=== PATIENT | male | born 1975 | race Caucasian/White ===

== ENCOUNTER 2018-05-20 22:16 | Emergency (ER) | payer OTHER ==
[2018-05-20] MEDS ORDERED: Sodium Chloride 0.9% 1,000 ML IV ONE (22:38)
--- NOTE | 2018-05-20 22:45 | C.PDOC ---
"History Of Present Illness 42 year old male presents to the ER with a complaint of right flank pain intermittently for the past 2 days, associated with blood in the urine today. Patient states he feels like his testicles are hot but denies any pain. Patient also denies fever, chills, or any PMHx. Time Seen by Provider: 05/20/18 22:34 Chief Complaint (Nursing): Back Pain History Per: Patient History/Exam Limitations: no limitations Onset/Duration Of Symptoms: Days Current Symptoms Are (Timing): Still Present Quality Of Discomfort: Unable To Describe Associated Symptoms: Back Pain (Right flank), Other (Hematuria). denies: Fever , Chills Alleviating Factors: None Recent travel outside of the [place]: No Past Medical History Reviewed: Historical Data, Nursing Documentation, Vital Signs Vital Signs: Last Vital Signs Temp 98.3 F 05/20/18 22:26 Pulse 77 05/20/18 22:26 Resp 20 05/20/18 22:26 BP 111/75 05/20/18 22:26 Pulse Ox 98 05/21/18 00:17 - Medical History PMH: No Chronic Diseases Family History: States: Unknown Family Hx - Social History Hx Alcohol Use: No Hx Substance Use: No - Immunization History Hx Tetanus Toxoid Vaccination: No Hx Influenza Vaccination: No Hx Pneumococcal Vaccination: No Review Of Systems Constitutional: Negative for: Fever, Chills Respiratory: Negative for: Cough, Shortness of Breath Gastrointestinal: Negative for: Nausea, Vomiting Genitourinary: Positive for: Hematuria Musculoskeletal: Positive for: Back Pain (Right flank) Physical Exam - Physical Exam Appears: Non-toxic Skin: Warm, Dry Head: Normacephalic Oral Mucosa: Moist Chest: Symmetrical, No Tenderness Cardiovascular: Rhythm Regular Respiratory: No Rales, No Rhonchi, No Wheezing Gastrointestinal/Abdominal: Soft, No Tenderness Back: CVA Tenderness (Mild right) Neurological/Psych: Oriented x3 ED Course And Treatment - Laboratory Results Result Diagrams: 05/20/18 22:55 05/20/18 22:55 Lab Interpretation: Abnormal (WBC 17.1 with left shift, UA WBC 1415, RBC 473, 3 + leukocyte esterase) O2 Sat by Pulse Oximetry: 98 (Room air) Pulse Ox Interpretation: Normal - CT Scan/US CT abdomen and pelvis Other Rad Studies (CT/US): Read By Radiologist, Radiology Report Reviewed CT/US Interpretation: EXAM: CT Abdomen and Pelvis Without Intravenous Contrast. EXAM DATE/TIME: 05/20/2018 10:38 PM. CLINICAL HISTORY: 42 years old , male; Pain; Abdominal pain; Flank; Lower; Additional info: Abd pain. TECHNIQUE: Axial computed tomography images of the abdomen and pelvis without intravenous contrast. All CT. scans at this facility use at least one of these dose optimization techniques: automated exposure. control; mA and/or kV adjustment per patient size (includes targeted exams where dose is matched to. clinical indication); or iterative reconstruction. Coronal and sagittal reformatted images were created and reviewed. COMPARISON: No relevant prior studies available. FINDINGS: LIMITATIONS: Mild streak/motion artifact. LUNG BASES: No significant abnormality seen. ABDOMEN: LIVER: No acute abnormality of the liver identified. GALLBLADDER AND BILE DUCTS: No CT evidence of acute cholecystitis. No evidence of. significant biliary ductal dilatation. PANCREAS : No CT evidence of acute pancreatitis. SPLEEN: No acute abnormality of the spleen identified. ADRENALS: No acute abnormality of the adrenal glands identified. KIDNEYS AND URETERS: Mild right hydroureteronephrosis, as well as right monique-ureteric stranding. No causative obstructing stone is identified. Tiny, bilateral nonobstructing renal stones. STOMACH AND BOWEL: No acute abnormality of the stomach, small bowel or colon identified. No. evidence of bowel obstruction. HERNANDO LERNER | Preliminary Radiology Report. CONFIDENTIALITY STATEMENT. This report is intended only for the use of the referring physician, and only in accordance with law, If you received this in error, call [phone]. Page 2 of 2. PELVIS: APPENDIX: Appendix is seen, and is within normal limits in appearance. BLADDER: Mild bladder wall thickening. This is a nonspecific finding, but can be seen with cystitis. REPRODUCTIVE: No acute abnormality of the reproductive organs is seen. ABDOMEN and PELVIS: INTRAPERITONEAL SPACE: No evidence of free intraperitoneal air or fluid. BONES/JOINTS: No acute fractures or other acute bony abnormality noted. SOFT TISSUES: No acute abnormality of the visualized soft tissues is seen. VASCULATURE: No evidence of abdominal aortic aneurysm. No evidence of periaortic. hemorrhage. LYMPH NODES: No evidence of diffuse lymphadenopathy. IMPRESSION: - Mild right hydroureteronephrosis, with no causative obstructing stone seen. Findings could. be due to a recently passed stone. A right-sided urinary tract infection could also have this. appearance. There is also mild bladder wall thickening, which could be due to cystitis. - See above for remaining findings. Thank you for allowing us to participate in the care of your patient. Dictated and Authenticated by: Tamra So MD. 05/21/2018 12:09 AM Eastern Time ([place] Progress Note: CT abd/pel, blood work, and urinalysis ordered. IV fluids and toradol administered. Reevaluation Time: 00:08 Reassessment Condition: Improved - Physician Consult Information Time Consulting Physician Contacted: 00:15 Physician Contacted: Wale De Luna Outcome Of Conversation: Recommends patient be observed in the ED and does not require admission at this time. Patient is comfortable after IV Toradol and did received IV Zosyn and fluids in ED. Disposition - Disposition Disposition Time: 00:50 Condition: IMPROVED Instructions: Renal Colic, Kidney Infection (DC) Forms: Gen Discharge Inst Mongolian Print Language: TURKISH - Clinical Impression Clinical Impression: Renal colic on right side, Pyelonephritis - Scribe Statement The provider has reviewed the documentation as recorded by the Scribe Kwame Levin All medical record entries made by the Scribe were at my direction and personally dictated by me. I have reviewed the chart and agree that the record accurately reflects my personal performance of the history, physical exam, medical decision making, and the department course for this patient. I have also personally directed, reviewed, and agree with the discharge instructions and disposition. Physician Patient Turnover Patient Signed Over To: Hortensia Estes Handoff Comments: patient to be observed in ED for recurrent pain or discomfort."
[2018-05-20] MEDS ORDERED: Sodium Chloride 0.9% 1,000 ML ONE (22:52)
[2018-05-20 22:59] LABS: BASO # 0.1 K/uL (0.0-0.2); BASO % 0.7 % (0.0-2.0); EOS # 0.1 K/uL (0.0-0.7); EOS % 0.8 % (0.0-4.0); HEMOGLOBIN 14.4 g/dL (12.0-18.0); LYMPH # 2.1 K/uL (1.0-4.3); LYMPH % 12.4 % (20.0-40.0); MEAN CELL VOLUME 80.2 fL (80.0-94.0); MEAN CORPUSCULAR HEMOGLOBIN 27.4 pg (27.0-31.0); MEAN CORPUSCULAR HGB CONC 34.1 g/dL (33.0-37.0); MEAN PLATELET VOLUME 7.6 fL (7.2-11.7); MONO # 0.9 K/uL (0.0-0.8); NEUT # 13.8 K/uL (1.8-7.0); NEUT % 81.1 % (50.0-75.0); NRBC % 0.1 % (0.0-2.0); RBC 5.27 Mil/uL (4.40-5.90); RED CELL DISTRIBUTION WIDTH 13.2 % (11.5-14.5); WHITE BLOOD COUNT 17.1 K/uL (4.8-10.8)
[2018-05-20 23:12] LABS: ALB/GLOB RATIO 1.2 (1.0-2.1); ALBUMIN 4.4 g/dL (3.5-5.0); ALT/SGPT 76 U/L (21-72); AST/SGOT 55 U/L (17-59); BLOOD UREA NITROGEN 9 mg/dL (9-20); CALCIUM 8.8 mg/dl (8.6-10.4); GFR AFRICAN-AMERICAN > 60; GFR NON-AFRICAN AMERICAN > 60
[2018-05-20 23:18] LABS: URINE BILIRUBIN NEGATIVE (NEGATIVE); URINE BLOOD 3+ (NEGATIVE); URINE CLARITY Hazy (Clear); URINE COLOR Yellow (YELLOW); URINE GLUCOSE (UA) NORMAL (Normal); URINE LEUKOCYTE ESTERASE 3+ Leu/uL (Negative); URINE PROTEIN 2+ mg/dL (NEGATIVE); URINE UROBILINOGEN NORMAL mg/dL (0.2-1.0)
[2018-05-21] MEDS ORDERED: Piperacill/Tazo 3.375gm in Dex 3.375 GM/50 ML BAG IVPB STA (00:08)
[2018-05-21] MEDS ORDERED: Piperacillin/Tazobact 3.375 gm 100 ML IVPB ONE (00:29)
[2018-05-21 01:27] VITALS: BP 99/62; PULSE 70; RESP 70; TEMP 98.1; O2SAT 20
--- NOTE | 2018-05-21 09:00 | CT ---
Date of service: 05/20/2018 PROCEDURE: CT Abdomen and Pelvis without intravenous contrast HISTORY: Abdominal pain COMPARISON: None. TECHNIQUE: Multiple contiguous axial images were performed through the abdomen and pelvis without the use of intravenous contrast. Subsequently, sagittal and coronal reformatted images were obtained. Radiation dose: Total exam DLP = 571 mGy-cm. This CT exam was performed using one or more of the following dose reduction techniques: Automated exposure control, adjustment of the mA and/or kV according to patient size, and/or use of iterative reconstruction technique. FINDINGS: LOWER THORAX: 2 millimeter subpleural nodule within the right middle lobe best seen on series 3 image 1. LIVER: Unremarkable. No gross lesion or ductal dilatation. GALLBLADDER AND BILE DUCTS: Unremarkable. PANCREAS: Unremarkable. No gross lesion or ductal dilatation. SPLEEN: Unremarkable. ADRENALS: Unremarkable. No mass. KIDNEYS AND URETERS: Right kidney: Mild right hydroureteronephrosis as well as right periureteric fat stranding. Punctate 1-2 millimeter calculus in the lower pole of the right kidney. Left Kidney: Punctate 2 millimeter midpole nonobstructive calculus. No hydronephrosis. VASCULATURE: Unremarkable. No aortic aneurysm. BOWEL: Unremarkable. No obstruction. No gross mural thickening. Under distended descending colon. APPENDIX: Unremarkable. Normal appendix. PERITONEUM: Unremarkable. No free fluid. No free air. LYMPH NODES: Unremarkable. No enlarged lymph nodes. BLADDER: Mild thickening of the urinary bladder wall. Low-attenuation foci measuring 4 millimeter seen at the level of the anterior urinary bladder wall, nonspecific. This is seen on series 3, image 170. Clinical correlation. Correlation with urinary bladder ultrasound may be helpful if clinically indicated. REPRODUCTIVE: Unremarkable. BONES: No acute fracture. OTHER FINDINGS: Streak and motion artifact. IMPRESSION: 1. Mild right hydroureteronephrosis with punctate 2 millimeter calculus in the lower pole of the right kidney. No gross hydronephrosis. Findings may be secondary to a recently passed calculus. Alternatively, right-sided urinary tract infection may have this appearance. Clinical correlation. 2. Mild thickening of the urinary bladder wall. This may represent a cystitis. Clinical correlation. Low-attenuation foci measuring 4 millimeter seen at the level of the anterior urinary bladder wall, nonspecific. This is seen on series 3, image 170. Clinical correlation. Correlation with urinary bladder ultrasound may be helpful if clinically indicated. 3. Punctate nonobstructive left renal calculus. These findings were preliminarily reported at 12:19 a.m. on 05/21/[address] Tamra So from [facility].
== END 2018-05-21 01:27 | disposition home or self-care (01) ==
LOC: C.ER 22:16
DX: N13.2 Hydronephrosis with renal and ureteral calculous obstruction (principal); N12 Tubulo-interstitial nephritis, not specified as acute or chronic
CPT/HCPCS: 74176; 80053; 81001; 85025; 87086; 96361; 96374; 96375; 99285; J1885; J2543; J7030

== ENCOUNTER 2018-05-22 16:15 | Emergency (ER) | payer OTHER ==
--- NOTE | 2018-05-22 17:09 | C.PDOC ---
History Of Present Illness 42 y/o male returns to the ER for ultrasound of the bladder, based on radiology s recommendation on recent CT report. Patient was evaluated here on 05/20 for the right flank pain and hematuria, and had CT showing a 2mm calculus on the right lower kidney and mild right hydronephrosis. Patient was re-called to [facility] today for ultrasound secondary to mildly thickened bladder wall and 4 mm foci in the anterior bladder seen incidentally on the CT scan. Currently patient denies having any pain, hematuria, frequency, abdominal discomfort, nausea, vomiting, or fever. Time Seen by Provider: 05/22/18 16:22 Chief Complaint (Nursing): Abnormal Labs History Per: Patient History/Exam Limitations: no limitations Onset/Duration Of Symptoms: Days Current Symptoms Are (Timing): Gone Past Medical History Reviewed: Historical Data, Nursing Documentation, Vital Signs Vital Signs: Last Vital Signs Temp 99.2 F 05/22/18 16:20 Pulse 100 H 05/22/18 16:20 Resp 18 05/22/18 16:20 BP 141/85 05/22/18 16:20 Pulse Ox 100 05/22/18 17:47 Surgical History: No Surg Hx Family History: States: Unknown Family Hx - Social History Hx Tobacco Use: No Hx Alcohol Use: No Hx Substance Use: No - Immunization History Hx Tetanus Toxoid Vaccination: No Hx Influenza Vaccination: No Hx Pneumococcal Vaccination: No Review Of Systems Except As Marked, All Systems Reviewed And Found Negative. Constitutional: Negative for: Fever, Chills Gastrointestinal: Negative for: Nausea, Vomiting, Abdominal Pain Genitourinary: Negative for: Dysuria, Frequency, Hematuria Physical Exam - Physical Exam Appears: Well, Non-toxic, No Acute Distress Skin: Normal Color, Warm, No Rash Head: Atraumatic, Normacephalic Eye(s): bilateral: Normal Inspection, PERRL, EOMI Nose: Normal Oral Mucosa: Moist Neck: Normal ROM, Supple Chest: Symmetrical Cardiovascular: Rhythm Regular, No Murmur Respiratory: Normal Breath Sounds, No Accessory Muscle Use, No Wheezing Gastrointestinal/Abdominal: Bowel Sounds, Soft, No Tenderness, No Distention Extremity: Bilateral: Atraumatic, Normal Color And Temperature, Normal ROM Neurological/Psych: Oriented x3, Normal Speech ED Course And Treatment O2 Sat by Pulse Oximetry: 100 (RA) Pulse Ox Interpretation: Normal Medical Decision Making Medical Decision Making: Time: 16:33 Initial Plan: --Urinary Bladder US Patient is stable for discharge home. Still pending ultrasound report from radiology. Advised to call the ER tomorrow morning for results and follow up with PMD or the clinic. Disposition Counseled Patient/Family Regarding: Studies Performed - Disposition Disposition: HOME/ ROUTINE Disposition Time: 18:04 Condition: STABLE Additional Instructions: Call Dr. Bennett tomorrow morning at [phone] for ultrasound results. Forms: Gen Discharge Inst Polish, [employer] (Polish) - POA Present On Arrival: None - Clinical Impression Clinical Impression: Bladder troubles - Scribe Statement The provider has reviewed the documentation as recorded by the Renata Prater Provider Attestation: All medical record entries made by the Renata were at my direction and personally dictated by me. I have reviewed the chart and agree that the record accurately reflects my personal performance of the history, physical exam, medical decision making, and the department course for this patient. I have also personally directed, reviewed, and agree with the discharge instructions and disposition.
[2018-05-22 18:18] VITALS: BP 126/77; PULSE 75; RESP 20; TEMP 98.9; O2SAT 99
--- NOTE | 2018-05-22 18:19 | US ---
Date of service: 05/22/2018 PROCEDURE: Ultrasound of the Bladder HISTORY: foci seen on CT COMPARISON: None available. TECHNIQUE: Sonographic evaluation of the bladder was performed. FINDINGS: Unremarkable without wall thickening or intraluminal debris. No calculus or gross mass lesion. No free fluid in pelvis. Bilateral ureteral jets visualized. Prevoid Volume: 365.1 cc. Post void residual: 17.4 cc. IMPRESSION: Unremarkable sonogram of the bladder. Low attenuating foci described on prior CT not seen on ultrasound. No significant postvoid residual.
== END 2018-05-22 18:19 | disposition home or self-care (01) ==
LOC: C.ER 16:15
DX: N32.9 Bladder disorder, unspecified (principal)